=== PATIENT | female | born 1975 | race Two or more races ===

== ENCOUNTER 2016-09-11 17:37 | Emergency (ER) | payer OTHER ==
[2016-09-11 17:58] VITALS: BP 131/91
--- NOTE | 2016-09-11 18:10 | ED ---
Neck Pain - HPI Summary HPI Summary: 41 F presents with neck pain, back pain, and head injury s/p alteration with police. She was in the bathroom huffing a substance when police were called and she allegedly resisted arrest. She states they kicked her in the back of the neck and back and hit her head on the sink. She requested EMS transport. She does not know if there was a LOC or not. She denies any vomiting but admits to nausea. She states the pain in her neck is not midline but is located off to the sides of her neck but radiates down her arms. She admits to tingling down the back of her arm. She admits to right sided sciatic like pain that she has had in the past. She denies any loss of bowel or bladder or any saddle paresthesia. - History of Current Complaint Chief Complaint: EDNeckComplaint Stated Complaint: NECK PAIN Time Seen by Provider: 09/11/16 17:57 Hx Last Menstrual Period: 03/23/13 - states regularly irregular Pain Intensity: 10 - Allergies/Home Medications Allergies/Adverse Reactions: Allergies Allergy/AdvReac Type Severity Reaction Status Date / Time No Known Allergies Allergy Verified 07/15/16 14:00 PMH/Surg Hx/FS Hx/Imm Hx Endocrine/Hematology History: Denies: Hx Diabetes, Hx Thyroid Disease Cardiovascular History: Denies: Hx Congestive Heart Failure, Hx Hypertension, Hx Pacemaker/ICD, Other Cardiovascular Problems/Disorders Respiratory History: Denies: Hx Asthma, Hx Chronic Obstructive Pulmonary Disease (COPD), Other Respiratory Problems/Disorders GI History: Denies: Hx Ulcer Sensory History: Reports: Hx Contacts or Glasses - Glasses Denies: Hx Hearing Aid Opthamlomology History: Reports: Hx Contacts or Glasses - Glasses Neurological History: Reports: Hx Migraine - NOT CURRENTLY, Other Neuro Impairments/Disorders - BIPOLAR,PTSD Psychiatric History: Reports: Hx Anxiety, Hx Depression, Hx Panic Disorder, Hx Post Traumatic Stress Disorder, Hx Inpatient Treatment, Hx Suicide Attempt, Hx of Violent Episodes Against Others, Hx Substance Abuse Denies: Hx Eating Disorder Infectious Disease History: Yes Infectious Disease History: Reports: Hx Hepatitis - Hep C Denies: Hx Clostridium Difficile, Hx Human Immunodeficiency Virus (HIV), Hx of Known/Suspected MRSA, History Other Infectious Disease, Traveled Outside the [place] in Last 30 Days - Family History Known Family History: Positive: Unknown - uncooperative - Social History Alcohol Use: Occasionally Alcohol Amount: rare Substance Use Type: Reports: Other Substance Use Comment - Amount & Last Used: Pt reports only huffing canned air infrequently Smoking Status (MU): Heavy Every Day Tobacco Smoker Type: Cigarettes, Cigars Amount Used/How Often: 1/2 ppd Have You Smoked in the Last Year: Yes Review of Systems Negative: Fever Negative: Chest Pain Negative: Shortness Of Breath Positive: Nausea. Negative: Vomiting Positive: Myalgia - neck and lower back pain Positive: Headache All Other Systems Reviewed And Are Negative: Yes Physical Exam Triage Information Reviewed: Yes Vital Signs On Initial Exam: Initial Vitals Temp Pulse Resp BP Pulse Ox 98.2 F 80 16 131/91 99 09/11/16 17:50 09/11/16 17:50 09/11/16 17:50 09/11/16 17:50 09/11/16 17:50 Vital Signs Reviewed: Yes Appearance: Positive: Well-Appearing Skin: Positive: Warm, Dry, Other - abrasion noted to right eyelid without any suturable area noted Head/Face: Positive: Normal Head/Face Inspection, Other - no step off, raccoon eyes, or de souza sign, contusion noted to right side of forehead Eyes: Positive: Normal, EOMI, NANCY, Conjunctiva Clear ENT: Positive: Normal ENT inspection, Pharynx normal, TMs normal Neck: Positive: Other: - full ROM of neck, no midline tenderness, tender to lateral aspect of neck Respiratory/Lung Sounds: Positive: Clear to Auscultation, Breath Sounds Present Cardiovascular: Positive: Normal, RRR Musculoskeletal: Positive: Other - neg SLR, full ROM of back Neurological: Positive: Sensory/Motor Intact, Alert, Oriented to Person Place, Time, CN Intact II-III, Reflexes Intact - biceps, patella - Ran Coma Scale Coma Scale Total: 15 Diagnostics - Vital Signs Vital Signs Temp Pulse Resp BP Pulse Ox 09/11/16 17:50 98.2 F 80 16 131/91 99 - Laboratory Lab Statement: Any lab studies that have been ordered have been reviewed, and results considered in the medical decision making process. Neck Course/Dx - Course Course Of Treatment: 41 F presents with neck, back, and head pain s/p altercation with police today. on exam normal neuro exam, contusion noted of right forehead and abrasion noted of right eye that is not suturable and is nothing to glue, full ROM of neck, good strength of upper and lower extremities , offered CT and imaging of back and neck and patient refused all imaging states would like to go home and take care of kids, warned of warning signs to return for such as worsening headache and vomiting and patient says will return if develops these, advised to follow up with primary and use tyenlol for pain, patient understands and agrees with plan - Diagnoses Differential Dx/HQI/PQRI: Positive: Cervical Fracture, Sprain, Strain, Trauma Provider Diagnoses: Neck pain, Head injury, Back pain Discharge - Discharge Plan Condition: Stable Disposition: HOME Patient Education Materials: Head Injury (ED), Neck Pain (ED) Referrals: Sarah Foy MD [Primary Care Provider] - Additional Instructions: Ice/heat area, perform ROM of neck and back Take Tylenol for headache every 6 hours Follow up with primary within 5 days Return to ED if develop vomiting, severe headache, change in behavior, or any new or worsening symptoms
== END 2016-09-11 18:21 | disposition home or self-care (01) ==
LOC: ED 17:37
DX: M54.2 Cervicalgia (principal); M54.9 Dorsalgia, unspecified; S09.90XA Unspecified injury of head, initial encounter; X58.XXXA Exposure to other specified factors, initial encounter; Y93.9 Activity, unspecified; Y92.9 Unspecified place or not applicable; Y99.9 Unspecified external cause status; F17.210 Nicotine dependence, cigarettes, uncomplicated
CPT/HCPCS: 99282

== ENCOUNTER 2016-09-11 23:16 | Inpatient (IN) | payer OTHER ==
[~2016-09-11 23:16] MED LIST: Norepinephrine VIAL* 1 MG/ML 4 ML VIAL ONE
[2016-09-11] MEDS ORDERED: Propofol* 100 ML ONE (23:32)
[2016-09-11 23:46] LABS: Hematocrit 35 % (35-47); Mean Corpuscular HGB Conc 32 g/dl (31-36); Mean Corpuscular Hemoglobin 31 pg (27-31); Mean Corpuscular Volume 98 fL (80-97); Mean Platelet Volume 10 um3 (7.4-10.4); Red Blood Count 3.56 10^6/ul (4.0-5.4); Red Cell Distribution Width 17 % (10.5-15); White Blood Count 10.5 10^3/ul (3.5-10.8)
[2016-09-11 23:48] LABS: Add Diff/Slide Review? Slide Review Added; Comments Flag Yes
[2016-09-11 23:57] LABS: Albumin 3.5 g/dL (3.2-5.2); BUN/Creatinine Ratio 7.7 (8-20); Calcium 8.1 mg/dL (8.6-10.3); EGFR African American 58.3 (>60); EGFR Non-African American 45.4 (>60); Globulin 2.6 g/dL (2-4); Magnesium 2.3 mg/dL (1.9-2.7); Potassium 3.9 mmol/L (3.5-5.0); Total Bilirubin 0.4 mg/dL (0.2-1.0); Total Protein 6.1 g/dL (6.4-8.9)
--- NOTE | 2016-09-12 00:14 | ED ---
Cardiac Resuscitation - HPI Summary HPI Summary: Patient presents for evaluation of cardiac arrest. Patient was huffing keyboard tube cleaner, became intoxicated, and witnessed fall onto the ground. She was breathing spontaneously for nearly 20 minutes and witnessed by boyfriend and two sons. They left for what they believe to be 3 to 5 minutes to eat another slice of pizza and upon returning was no longer breathing. CPR begun immediately by family and EMS called. EMS arrived and found her to be unresponsive, asystole, and bagged by BLS. ALS arrived and intubated, placed IV and gave single dose of epinephrine with ROSC. Glucose was greater than 200. - History of Current Complaint Chief Complaint: EDCardiacArrest Stated Complaint: UNRESPONSIVE Time Seen by Provider: 09/11/16 23:44 Hx Obtained From: Family/Paper Grader, EMS Hx From Patient Unobtainable Due To: Extremis Arrest Witnessed: No Down-time Before Basic Life Support Initiated: Unknown Down-time Before Advanced Life Support Initiated: Unknown Was AED Placed on Patient: Yes AED Placed on Patient By: EMS Did AED Recommend Defibrillation: No Was Defibrillating Shock Administered: No Did Patient Have Return of Spontaneous Circulation (ROSC): Yes - Prehospital Findings Airway: Gag Reflex Absent Breathing: Apnea Circulation/Rhythm: Asystole - Prehospital Intervention Breathing: ETT Cuffed - Additional Pertinent History Primary Care Physician: SHELBIE - Allergies/Home Medications Allergies/Adverse Reactions: Allergies Allergy/AdvReac Type Severity Reaction Status Date / Time No Known Allergies Allergy Verified 07/15/16 14:00 - Past Medical History Past Medical History: Unobtainable Due to Extremis - Family History Family History: Unobtainable Due to Extremis - Social History Social History: Unobtainable Due to Extremis - Review of Systems Review of Systems: Unobtainable Due to Extremis Physical Examination - Physical Examination Completion Of Physical Exam Limited Due To: Altered Mental Status, Extremis Resuscitation: Successful - ED Findings Airway: Gag Reflex Absent Breathing: Apnea, Lungs: Clear, Breath Sounds Equal Circulation/Rhythm: Sinus Disability/Neurological: Unresponsive, Does NOT Respond to Pain, Reflexes Not Intact, Pupils Fixed, Pupils Dilated - ED Intervention Breathing: ETT Cuffed, Intubation: - ED Response Airway: Gag Reflex Present - Glascow Coma Score Eye Openin - None Motor: 1 - None Verbal: 1 - Intubated Coma Scale Total: 3 T Procedures - Central Line Central Line Lumen: triple Central Line Procedure: betadine prep, sterile drapes applied, sterile dressing applied Central Line Position: subclavian (L) Complications: none Central Line Post Position: sutured, good blood return, position confirmed w/ CXR Diagnostics - Laboratory Lab Results: Lab Results 09/11/16 09/11/16 Range/Units 23:30 23:30 WBC 10.5 (3.5-10.8) 10^3/ul RBC 3.56 L (4.0-5.4) 10^6/ul Hgb 11.0 L (12.0-16.0) g/dl Hct 35 (35-47) % MCV 98 H (80-97) fL MCH 31 (27-31) pg MCHC 32 (31-36) g/dl RDW 17 H (10.5-15) % Plt Count 179 (150-450) 10^3/ul MPV 10 (7.4-10.4) um3 Neut % (Auto) 60.0 (38-83) % Lymph % (Auto) 32.0 (25-47) % [place] % (Auto) 5.0 (1-9) % Eos % (Auto) 2.3 (0-6) % Baso % (Auto) 0.7 (0-2) % Absolute Neuts (auto) 6.3 (1.5-7.7) 10^3/ul Absolute Lymphs (auto) 3.4 (1.0-4.8) 10^3/ul Absolute Monos (auto) 0.5 (0-0.8) 10^3/ul Absolute Eos (auto) 0.2 (0-0.6) 10^3/ul Absolute Basos (auto) 0.1 (0-0.2) 10^3/ul Absolute Nucleated RBC 0.01 10^3/ul Nucleated RBC % 0.1 Sodium 135 (133-145) mmol/L Potassium 3.9 (3.5-5.0) mmol/L Chloride 104 (101-111) mmol/L Carbon Dioxide 16 L (22-32) mmol/L Anion Gap 15 H (2-11) mmol/L BUN 10 (6-24) mg/dL Creatinine 1.30 H (0.51-0.95) mg/dL Est GFR ( Amer) 58.3 (>60) Est GFR (Non-Af Amer) 45.4 (>60) BUN/Creatinine Ratio 7.7 L (8-20) Glucose 299 H (70-100) mg/dL Calcium 8.1 L (8.6-10.3) mg/dL Magnesium 2.3 (1.9-2.7) mg/dL Total Bilirubin 0.40 (0.2-1.0) mg/dL AST 230 H (13-39) U/L ALT 276 H (7-52) U/L Alkaline Phosphatase 89 (34-104) U/L Troponin I Pending Total Protein 6.1 L (6.4-8.9) g/dL Albumin 3.5 (3.2-5.2) g/dL Globulin 2.6 (2-4) g/dL Albumin/Globulin Ratio 1.3 (1-3) Result Diagrams: 09/11/16 23:30 09/11/16 23:30 Lab Statement: Any lab studies that have been ordered have been reviewed, and results considered in the medical decision making process. - EKG No standard instances Cardiac Rate: Tachycardia EKG Rhythm: Sinus Tachycardia ST Segment: Normal Ectopy: None Cardiac Resus. Course/Dx - Cardiac Resuscitation Differential Dx/HPI/PQRI: Acute Myocardial Infarct, Asystole, Cardiac Rhythm Disturbance, Drug Overdose, Respiratory Failure - Diagnoses Provider Diagnoses: Cardiac arrest, Hypoxic brain damage, Acute renal failure - Provider Notifications Instructed by Provider To: Admit As Inpatient - Critical Care Time Critical Care Time: 30-74 min Discharge - Discharge Plan Condition: Critical Disposition: ADMITTED TO [facility]
[2016-09-12 00:23] LABS: Troponin I 0.01 ng/mL (<0.04)
[2016-09-12] MEDS ORDERED: fentaNYL* 50 MCG/ML 2 ML VIAL (100 MCG VIAL) IV SLOW PU ONE (00:23)
[2016-09-12 00:36] LABS: Benzodiazepine Urine Screen None Detected (None Detect)
[2016-09-12 00:41] LABS: PCO2 Arterial 29 mmHg (35-45)
--- NOTE | 2016-09-12 01:23 | HP ---
H&P (Free Text) History and Physical: PCP: Kevin Foy MD Date/Time of Evaluation: 09/12/2016 0150 CC: [id number] cardiac arrest HPI: Mrs Spear is a 41YO female HX psychiatric disorders who [place] [facility] [place] after claiming a neck injury sustained while being arrested for huffing an unknown substance in a [employer] bathroom. She was evaluated and released. She then went home where her boyfriend and 2 sons age 20 and 22 were. 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 Her boyfriend reports she was breathing and so he went into the next room for no longer than 5minutes. When he returned, she was not breathing and so he called 911 and started bystander CPR. EMS arrived, intubated, and transported. Work up reveals a CT brain WO with full effacement of the cerebrum with associated uncal herniation. PMedHx psychiatric disorders Allergies No Known Allergies Allergy (Verified 07/15/16 14:00) Ambulatory Orders Medications found on patient bedside include mirtazapine, prazosin, nebumetone, & trazodone. Dosages aren't available & full reconciliation will need to be done in the AM via Rx. PSurgHx unobtainable SocHx: polysubstance abuse; lives with a boyfriend; full code status; otherwise unobtainable FamHx: unobtainable ROS: as above, otherwise reviewed and all were negative Constitutional: NAD, normally developed, well-nourished white female vitals: Vital Signs Temp 35.2 C 09/12/16 01:49 Pulse 100 09/12/16 01:49 Resp 15 09/12/16 01:49 BP 178/107 09/12/16 01:49 Pulse Ox 100 09/12/16 01:49 HEENM: atraumatic; sclera/conjunctiva: non-icteric/clear; pupils ~1cm & fixed; blephara: normal; fundi: positive B papilledema; auricles: normal; hearing: unable to assess; oropharynx: intubated, mucosa moist Neck: soft tissue: no nuchal rigidity; thyroid: normal Pulmonary: clear to auscultation bilaterally, good aeration, no accessory muscle use CV: RR/RR, normal S1S2, no carotid bruit, no jugular venous distention, 2+ B DP/ PT, no edema Abdominal: soft, non-distended, non-tender, no rebound/guarding/rigidity, normoactive bowel sounds, no hepatosplenomegaly or masses, no costovertebral angle tenderness Musculoskeletal: general: grossly intact; gait: currently non-ambulatory Integumental: normal appearance and texture Neurological cranial nerves : absent occulocephalic reflex II: visual melissa unassessable III/IV/: symmetric light reflex, pupils ~1cm & fixed V: absent corneal reflex VII: intact facial symmetry VIII: hearing unassessable IX/X: palatal motion, gag reflex, & dysarthria unable to be assessed XII: voice articulation unable to be assessed motor no posturing or withdrawal to noxious stimuli coordination unassessable sensory unassessable Psychiatric orientation: GCS 3 affect: somnolent mood: acquiescent eye contact: absent content: absent responses: absent insight: absent Testing: Lab Results 09/11/16 09/11/16 09/11/16 Range/Units 23:30 23:30 23:30 WBC 10.5 (3.5-10.8) 10^3/ul RBC 3.56 L (4.0-5.4) 10^6/ul Hgb 11.0 L (12.0-16.0) g/dl Hct 35 (35-47) % MCV 98 H (80-97) fL MCH 31 (27-31) pg MCHC 32 (31-36) g/dl RDW 17 H (10.5-15) % Plt Count 179 (150-450) 10^3/ul MPV 10 (7.4-10.4) um3 Neut % (Auto) 60.0 (38-83) % Lymph % (Auto) 32.0 (25-47) % [place] % (Auto) 5.0 (1-9) % Eos % (Auto) 2.3 (0-6) % Baso % (Auto) 0.7 (0-2) % Absolute Neuts (auto) 6.3 (1.5-7.7) 10^3/ul Absolute Lymphs (auto) 3.4 (1.0-4.8) 10^3/ul Absolute Monos (auto) 0.5 (0-0.8) 10^3/ul Absolute Eos (auto) 0.2 (0-0.6) 10^3/ul Absolute Basos (auto) 0.1 (0-0.2) 10^3/ul Absolute Nucleated RBC 0.01 10^3/ul Nucleated RBC % 0.1 INR (Anticoag Therapy) 1.01 (0.89-1.11) APTT 30.5 (26.0-36.3) seconds Patient Temperature ABG pH (7.35-7.45) ABG pCO2 (35-45) mmHg ABG pO2 (80-100) mmHg ABG HCO3 (19-31) mmol/L ABG O2 Saturation (95-98) % ABG Base Excess (-2.0-2.0) Respiration Rate O2 Delivery Device Ventilator Type Vent Mode FiO2 Inspiratory Time PEEP Pressure Support Pressure Control EPAP IPAP BiPAP Sodium 135 (133-145) mmol/L Potassium 3.9 (3.5-5.0) mmol/L Chloride 104 (101-111) mmol/L Carbon Dioxide 16 L (22-32) mmol/L Anion Gap 15 H (2-11) mmol/L BUN 10 (6-24) mg/dL Creatinine 1.30 H (0.51-0.95) mg/dL Est GFR ( Amer) 58.3 (>60) Est GFR (Non-Af Amer) 45.4 (>60) BUN/Creatinine Ratio 7.7 L (8-20) Glucose 299 H (70-100) mg/dL Lactic Acid (0.5-2.0) mmol/L Calcium 8.1 L (8.6-10.3) mg/dL Magnesium 2.3 (1.9-2.7) mg/dL Total Bilirubin 0.40 (0.2-1.0) mg/dL AST 230 H (13-39) U/L ALT 276 H (7-52) U/L Alkaline Phosphatase 89 (34-104) U/L Troponin I 0.01 (<0.04) ng/mL Total Protein 6.1 L (6.4-8.9) g/dL Albumin 3.5 (3.2-5.2) g/dL Globulin 2.6 (2-4) g/dL Albumin/Globulin Ratio 1.3 (1-3) Urine Opiates Screen (None Detect) Ur Barbiturates Screen (None Detect) Ur Phencyclidine Scrn (None Detect) Ur Amphetamines Screen (None Detect) U Benzodiazepines Scrn (None Detect) Urine Cocaine Screen (None Detect) U Cannabinoids Screen (None Detect) 09/11/16 09/11/16 09/12/16 Range/Units 23:30 23:50 01:35 WBC (3.5-10.8) 10^3/ul RBC (4.0-5.4) 10^6/ul Hgb (12.0-16.0) g/dl Hct (35-47) % MCV (80-97) fL MCH (27-31) pg MCHC (31-36) g/dl RDW (10.5-15) % Plt Count (150-450) 10^3/ul MPV (7.4-10.4) um3 Neut % (Auto) (38-83) % Lymph % (Auto) (25-47) % [place] % (Auto) (1-9) % Eos % (Auto) (0-6) % Baso % (Auto) (0-2) % Absolute Neuts (auto) (1.5-7.7) 10^3/ul Absolute Lymphs (auto) (1.0-4.8) 10^3/ul Absolute Monos (auto) (0-0.8) 10^3/ul Absolute Eos (auto) (0-0.6) 10^3/ul Absolute Basos (auto) (0-0.2) 10^3/ul Absolute Nucleated RBC 10^3/ul Nucleated RBC % INR (Anticoag Therapy) (0.89-1.11) APTT (26.0-36.3) seconds Patient Temperature Not Reportable ABG pH 7.31 L (7.35-7.45) ABG pCO2 29 L (35-45) mmHg ABG pO2 502 H (80-100) mmHg ABG HCO3 17.0 L (19-31) mmol/L ABG O2 Saturation 100.0 H (95-98) % ABG Base Excess -10.2 L (-2.0-2.0) Respiration Rate 14 O2 Delivery Device Mechanical ventilator Ventilator Type Not Reportable Vent Mode Pcv FiO2 100 Inspiratory Time Not Reportable PEEP 5 Pressure Support Not Reportable Pressure Control Not Reportable EPAP Not Reportable IPAP Not Reportable BiPAP Not Reportable Sodium (133-145) mmol/L Potassium (3.5-5.0) mmol/L Chloride (101-111) mmol/L Carbon Dioxide (22-32) mmol/L Anion Gap (2-11) mmol/L BUN (6-24) mg/dL Creatinine (0.51-0.95) mg/dL Est GFR ( Amer) (>60) Est GFR (Non-Af Amer) (>60) BUN/Creatinine Ratio (8-20) Glucose (70-100) mg/dL Lactic Acid 9.2 H* (0.5-2.0) mmol/L Calcium (8.6-10.3) mg/dL Magnesium (1.9-2.7) mg/dL Total Bilirubin (0.2-1.0) mg/dL AST (13-39) U/L ALT (7-52) U/L Alkaline Phosphatase (34-104) U/L Troponin I (<0.04) ng/mL Total Protein (6.4-8.9) g/dL Albumin (3.2-5.2) g/dL Globulin (2-4) g/dL Albumin/Globulin Ratio (1-3) Urine Opiates Screen None detected (None Detect) Ur Barbiturates Screen None detected (None Detect) Ur Phencyclidine Scrn None detected (None Detect) Ur Amphetamines Screen None detected (None Detect) U Benzodiazepines Scrn None detected (None Detect) Urine Cocaine Screen Presumptive positive H (None Detect) U Cannabinoids Screen Presumptive positive H (None Detect) ECG, personally reviewed: NSR rate 74, no ischemia, Q-waves in II/III/AVF, QTc 539 CXR, personally reviewed: RLL infiltrate CT brain WO, personally reviewed: read as: Abnormal decreased differentiation of the escudero and white matter throughout the brain is most likely consistent with diffuse global anoxic brain injury with global brain infarct with abnormal brain swelling and edema with diffuse effacement of the sulci, ventricles, & cisterns with mild bilateral early uncal downward herniation. Impression: 41F unfortunately sustaining a severe anoxic brain injury w/ B uncal herniation likely 2nd to cardiac arrhythmia induced by drug use DIAGNOSIS & PLAN Primary severe anoxic brain injury w/ B uncal herniation : mechanical intubation : maintain euthermic at <= 36 celcius : 3% saline to prevent hypoNatremia and mitigate further cerebral edema : family advised survival is doubtful, intact survival is not expected : schwarz to gravity to monitor urine output in critically ill patient : OG tube : PRN IV lorazepam for seizures : monitor for onset of diabetes insipidus : propofol GTT : supportive care Secondary psychiatric issues : review medications once reconciled Admission Rational: inpatient for critically ill intubated patient DVTp: SCDs & heparin GTT Code Status: full HCP: children
[2016-09-12 01:35] LABS: FIO2 100; Resp Rate 14
[2016-09-12] MEDS ORDERED: Ondansetron INJ* 2 MG/ML VIAL IV PRN (01:36)
[2016-09-12] MEDS ORDERED: LORazepam INJ* 2 MG/ML 1 ML VIAL IV PRN (01:36)
[2016-09-12] MEDS ORDERED: Albuterol 2.5 MG/3 ML NEB.SOL* (0.083%) INH PRN (01:36)
[2016-09-12] MEDS ORDERED: Sodium Chloride 3% HYPERTONIC* 500 ML IVPB ONE ×2 (01:47→12:37)
[2016-09-12] MEDS ORDERED: fentaNYL* 50 MCG/ML 2 ML VIAL (100 MCG VIAL) ONE (01:53)
[2016-09-12] MEDS: fentaNYL* 50 MCG/ML 2 ML VIAL (100 MCG VIAL) IV SLOW PU PRN ×2 (01:55→02:35)
[2016-09-12] MEDS ORDERED: Norepinephrine 16MCG/ML IVPRE* 4,000 MCG/250 ML BAG IV SCH (02:00)
[2016-09-12] MEDS ORDERED: Propofol* 100 ML IV SCH ×2 (02:00)
[2016-09-12] MEDS ORDERED: Piperac/Tazob 3.375 gm in NS* 3.375 GM/100 ML BAG IVPB ONE (03:00)
[2016-09-12] MEDS: Pantoprazole IV* 40 MG IV SCH ×2 (03:30→08:04)
[2016-09-12] MEDS: Acetaminophen SUPP* 650 MG SUPP PR SCH ×4 (03:30→22:29)
[2016-09-12 06:00] LABS: Hematocrit 45 % (35-47); Hemoglobin 14.4 g/dl (12.0-16.0); Mean Corpuscular HGB Conc 32 g/dl (31-36); Mean Corpuscular Hemoglobin 31 pg (27-31); Mean Corpuscular Volume 95 fL (80-97); Mean Platelet Volume 10 um3 (7.4-10.4); Red Cell Distribution Width 16 % (10.5-15); White Blood Count 21.3 10^3/ul (3.5-10.8)
[2016-09-12 06:02] LABS: Comments Flag Yes
[2016-09-12 06:03] LABS: Add Diff/Slide Review? Slide Review Added
[2016-09-12 06:11] LABS: Albumin 3.7 g/dL (3.2-5.2); BUN/Creatinine Ratio 11.3 (8-20); Calcium 7.5 mg/dL (8.6-10.3); EGFR African American 38.6 (>60); Globulin 2.9 g/dL (2-4); Potassium 3.4 mmol/L (3.5-5.0); Total Bilirubin 0.5 mg/dL (0.2-1.0); Total Protein 6.6 g/dL (6.4-8.9)
[2016-09-12] MEDS: Insulin LISPRO* 1 UNITS UNIT SUBCUT SCH ×5 (06:12→23:07)
[2016-09-12 06:19] LABS: Immature Granulocytes 20 % (0-9); Neutrophil % 67 % (38-83); Reactive Lymph % 1 % (0-6); Toxic Granulation 1+
[2016-09-12 06:46] LABS: FIO2 40; Resp Rate 14
[2016-09-12 06:51] LABS: PCO2 Arterial 31 mmHg (35-45)
--- NOTE | 2016-09-12 06:55 | PN ---
Progress Note - Progress Note Note: After arriving to ICU, Mrs Spear had a bloody bowel movement, likely 2nd ischemic bowel from her cardiac arrest. Additionally, repeat lab values this AM show worsening renal and hepatic function as well as a troponin of 3.0.
[2016-09-12] MEDS: Chlorhexidine MOUTHWASH 0.12%* 15 ML UDC TOPICAL SCH ×5 (06:57→22:29)
[2016-09-12] MEDS ORDERED: Amiodarone 150 MG IVPREMIX* 150 MG/100 ML BAG IV ONE (07:08)
[2016-09-12] MEDS ORDERED: Amiodarone 360 MG IVPREMIX* 360 MG/200 ML BAG IV ONE (07:30)
[2016-09-12] MEDS: Piperac/Tazob 3.375 gm in NS* 3.375 GM/100 ML BAG IVPB SCH ×2 (07:58→15:55)
[2016-09-12] MEDS ORDERED: Sodium Bicarbonate 8.4% IV* 150 MEQ in D5W 1000 ML BAG* 1,000 ML IVPB SCH (08:00)
[2016-09-12] MEDS: KCL 20 MEQ/100 ML IVPREMIX* 20 MEQ/100 ML BAG IV SCH ×3 (08:03→12:56)
--- NOTE | 2016-09-12 08:13 | PN ---
Hospitalist Progress Note HOSPITALIST ADDENDUM Case reviewed with Dr. Esteban. Called by RN (Carol) about episodes of Vtach seen on Telemetry, but VS stable. Also called by RT (Dex) as patient's ABG shows metabolic acidosis. Tele strips reviewed show bursts of wide complex tachycardia suggestive of Vtach. AB./174/99, showing metabolic acidosis likely secondary to NUVIA and lactic acidosis. Selected Entries 09/12/16 09/12/16 07:30 07:33 Temperature 97.2 F Heart Rate 90 Respiratory 26 Rate Blood Pressure 117/85 (mmHg) O2 Sat by Pulse 100 Oximetry Respiratory End 15 -Tidal CO2 Gen: young lady lying in bed, tachypneic, breathing over the vent. CVS: normal S1 and S2, RRR. Chest: BS+ bilaterally with no added sounds. Neuro: unresponsive, pupils dilated and non-reactive to light. A/P: - Tachypnea secondary to metabolic acidosis, trying to compensate with respiratory alkalosis, but failing. - Will replete potassium, check magnesium, start Amiodarone and Bicarb drips. - Overall prognosis is very poor.
[2016-09-12 08:37] LABS: Magnesium 1.8 mg/dL (1.9-2.7)
--- NOTE | 2016-09-12 08:55 | RAD ---
INDICATION: Unresponsiveness COMPARISON: Most recent previous chest x-ray is dated June 12, 2013 TECHNIQUE: Single AP portable view of the chest was obtained. FINDINGS: Image quality is compromised due to the relative inferiority of a portable chest x-ray. There has been interval placement of an endotracheal tube with the tip approximately 4 cm above the magda. An AED pad is overlying the midline mediastinum. The heart and mediastinum exhibit normal size and contour. The lungs appear hyperaerated in the AP view. The lungs are otherwise grossly clear. There is no evidence of a large pleural effusion. Visualized bones are normal for the patient's age. IMPRESSION: 1. Appropriately positioned endotracheal tube. 2. No radiographic evidence for acute cardiopulmonary abnormality on this portable chest x-ray.
--- NOTE | 2016-09-12 09:01 | RAD ---
INDICATION: Unresponsiveness COMPARISON: Most recent CT of the brain August 18, 2016 TECHNIQUE: Contiguous axial sections of the brain were obtained from the skull base to the vertex without contrast. FINDINGS: There is widespread loss of the differentiation of the white and escudero matter diffusely. There is diffuse sulcal effacement. There has been interval decrease in the relative size, symmetrically, of the ventricles, sulci and basilar cisterns. Hypoattenuating density immediately posterior to the left occipital lobe is likely streak artifact. No definite extra-axial hemorrhage is identified. No significant focal osseous abnormality is present. The mastoid air cells are well-aerated. There is mild bilateral mucosal thickening of the ethmoid air cells and a small fluid level in the left sphenoid sinus. IMPRESSION: CT findings are compatible with diffuse anoxic brain injury and global cerebral edema.
--- NOTE | 2016-09-12 09:31 | RAD ---
INDICATION: Placement of orogastric tube COMPARISON: Most recent previous chest x-ray dated September 11, 2016 TECHNIQUE: Single AP portable view of the chest was obtained. FINDINGS: Image quality is compromised due to the relative inferiority of a portable chest x-ray. The endotracheal tube remains in appropriate position. There is been interval placement of an orogastric tube the tip terminating below the level of diaphragm overlying the gastric fundus. The lungs appear hyperaerated. The right greater than left diaphragm are obscured which could indicate the presence of pleural effusions. IMPRESSION: 1. Interval placement of a properly positioned orogastric tube. 2. Possible development of right greater than left pleural effusions.
[2016-09-12] MEDS ORDERED: Norepinephrine 16MCG/ML IVPRE* 4,000 MCG/250 ML BAG IV ONE (09:54)
[2016-09-12] MEDS ORDERED: Insulin GLARGINE(*) 1 UNITS UNIT SUBCUT ONE (12:30)
--- NOTE | 2016-09-12 12:48 | PN ---
Progress Note - Progress Note Note: CRITICAL CARE MEDICINE Date: 09/12/16 Time: 1130 SUBJECTIVE: Patient seen and examined. PHYSICAL EXAM: Vital Signs: Reviewed. T ~36C; HR 70-80s. MAP >70. 40% Neurologic: overbreathing vent; agonal and dysyn. dysconj pupils. about 3mm nonreactive. neg corneals, gag, cough. no ocr. no response to painful stimuli. HEENT: Sclera anicteric. Trachea midline. Cardiovascular: S1 S2 Respiratory: coarse rales bl; adjusted to high level PCV to avoid air hunger and then aprv. Abdomen: Soft, no bs. Extremities: cyanotic at fingers and toes. Access: Left subclavian cvc LABS: Reviewed. IMAGING: Reviewed. MEDICATIONS: Reviewed. ASSESSMENT: 41 F OHCA post toxic inhalation and global anoxia Anoxic brain injury OHCA and cardiogenic shock on admission - stabilized. NSTEMI Sec to demand ischemia Acute hypoxic resp failure Aspiration pneumonitis Acute ischemic gastritis Ischemic hepatitis Lactic acidosis Acute renal failure, with component of ATN Hyponatremia on admission Tox + cocaine and cannabis PLAN: Neurologic: severe injury and at risk to deteriorate to brain . On 3% saline continue currently to avoid hyponatremia but not bolusing up to high Na. Goal high nml 145. Only triggering resp at present and prognosis grim as likely to lose this ability as well. Maintain euthermia <36C. Recieved short course of propofol but off now. Cardiovascular: Malperfused still. Low dose levophed and maintain MAP >75. Keep fluids for now although intravascular equilibrating. WCT earlier abated by amio. Can hold off on amio now and correct acid and see how she maintains. Would commit to amio if arrythmias resume. Respiratory: lung injury. Adjusted to aprv. again, overbreathing, but unable to allieviate all her work but on other modalities at too much risk for further lung injury/ards. protection as able but not wanting to sedate. Gastrointestinal: ogt. ppi. wouldn't curtis, just correct hypoxia and acid. Renal/Metabolic: acute insult likely to worsen. keep perfusion. ivf. bicarb gtt today. f/u Infectious Disease: placed on zosyn. may be at risk to invasion post aspiration and will keep for now given severity. Hematology: hemoconcentrated on last lab. start hsq and follow. Endocrine: reactive hyperglycemia. Low dose lantus and ssi; no seeing benefit in drip and certainly need to avoid hypo Musculoskeletal: bedrest; skin protection. Psych/Social: No family available yet but updated extensively last pm by hospitalists. Grave prognosis. Alert FLDRS. Supportive and preventative care as ordered. SUP: ppi VTE prophylaxis: heparin Logan catheter given critical illness. Disposition: ICU Code Status: Full Critical Care Time: 65min FGildardo Carvajal DO
[2016-09-12] MEDS ORDERED: Amiodarone 360 MG IVPREMIX* 360 MG/200 ML BAG IV SCH (13:30)
[2016-09-12] MEDS: Sodium Bicarbonate 8.4% IV* 150 MEQ in D5W 1000 ML BAG* 1,000 ML IVPB SCH ×3 (14:35→23:11)
[2016-09-12] MEDS: Heparin VIAL(*) 5000 UNITS/ML VIAL (FIVE THOUSAND) SUBCUT SCH ×2 (14:42→22:29)
--- NOTE | 2016-09-12 15:28 | PN ---
Progress Note - Progress Note Note: CRITICAL CARE MEDICINE Date: 09/12/16 Time: 1500 boyfriend and son updated at bedside. We discussed dx, px, support and time. They expressed some understanding. CCM time 10min India Carvajal, DO
[2016-09-12] MEDS: NS 0.9% 1000 ML* 1,000 ML IV SCH (20:28)
[2016-09-12] MEDS ORDERED: Insulin GLARGINE(*) 1 UNITS UNIT SUBCUT SCH (21:00)
[2016-09-13] MEDS: Piperac/Tazob 3.375 gm in NS* 3.375 GM/100 ML BAG IVPB SCH ×3 (00:34→17:48)
[2016-09-13] MEDS: Chlorhexidine MOUTHWASH 0.12%* 15 ML UDC TOPICAL SCH ×6 (02:27→21:54)
[2016-09-13] MEDS: Insulin LISPRO* 1 UNITS UNIT SUBCUT SCH ×6 (02:27→21:55)
[2016-09-13] MEDS: Norepinephrine 16MCG/ML IVPRE* 4,000 MCG/250 ML BAG IV SCH (05:05)
[2016-09-13] MEDS: Acetaminophen SUPP* 650 MG SUPP PR SCH ×4 (05:05→22:59)
[2016-09-13] MEDS: Sodium Bicarbonate 8.4% IV* 150 MEQ in D5W 1000 ML BAG* 1,000 ML IVPB SCH ×2 (05:06→08:18)
[2016-09-13] MEDS ORDERED: Heparin VIAL(*) 5000 UNITS/ML VIAL (FIVE THOUSAND) SUBCUT SCH (06:00)
[2016-09-13] MEDS: Heparin VIAL(*) 5000 UNITS/ML VIAL (FIVE THOUSAND) SUBCUT SCH ×3 (06:28→21:54)
[2016-09-13] MEDS: NS 0.9% 1000 ML* 1,000 ML IV SCH (06:46)
[2016-09-13 06:49] LABS: Hematocrit 38 % (35-47); Hemoglobin 12.3 g/dl (12.0-16.0); Mean Corpuscular HGB Conc 33 g/dl (31-36); Mean Corpuscular Hemoglobin 31 pg (27-31); Mean Corpuscular Volume 95 fL (80-97); Mean Platelet Volume 10 um3 (7.4-10.4); Red Blood Count 3.99 10^6/ul (4.0-5.4); Red Cell Distribution Width 16 % (10.5-15); White Blood Count 31.5 10^3/ul (3.5-10.8)
[2016-09-13 06:54] LABS: Add Diff/Slide Review? Slide Review Added; Comments Flag Yes
[2016-09-13 07:04] LABS: Albumin 2.8 g/dL (3.2-5.2); BUN/Creatinine Ratio 14.2 (8-20); EGFR African American 26.2 (>60); EGFR Non-African American 20.4 (>60); Globulin 2.6 g/dL (2-4); Magnesium 1.6 mg/dL (1.9-2.7); Phosphorus 4.8 mg/dL (2.5-5.0); Total Bilirubin 0.4 mg/dL (0.2-1.0); Total Protein 5.4 g/dL (6.4-8.9)
[2016-09-13 07:47] LABS: Calcium 5.8 mg/dL (8.6-10.3); Direct Bilirubin 0.1 mg/dL (0.03-0.18); Indirect Bilirubin 0.3 mg/dL (0.3-1.0); Potassium 4.6 mmol/L (3.5-5.0)
[2016-09-13 08:36] LABS: Immature Granulocytes 9 % (0-9); Neutrophil % 79 % (38-83)
[2016-09-13 08:37] LABS: RBC Morphology Normal (Normal)
[2016-09-13] MEDS: Pantoprazole IV* 40 MG IV SCH (08:47)
--- NOTE | 2016-09-13 11:39 | PN ---
Progress Note - Progress Note Note: CRITICAL CARE MEDICINE Date: 09/13/16 Time: 1035 SUBJECTIVE: Patient seen and examined. PHYSICAL EXAM: Vital Signs: Reviewed. T ~36C; HR 70-80s. MAP >70. 40% Neurologic: overbreathing vent still with agonal, asyn breaths although they are better. pupils more conjugate but fixed. nonreactive. no gag, cough, corneals. no movement to stimuli. HEENT: Sclera anicteric. Trachea midline. Cardiovascular: S1 S2 Respiratory: coarse rales bl; adjusted to high Phigh this am as volumes are low. Abdomen: Soft, no bs. Extremities: cyanotic at fingers and toes better. Access: Left subclavian cvc LABS: Reviewed. IMAGING: Reviewed. MEDICATIONS: Reviewed. ASSESSMENT: 41 F [facility]CA post toxic inhalation and global anoxia Anoxic brain injury Post cardiac arrest coma syndrome OHCA and cardiogenic shock on admission - stabilized. NSTEMI Sec to demand ischemia Acute hypoxic resp failure Aspiration pneumonitis Acute ischemic gastritis Ischemic hepatitis Lactic acidosis Acute renal failure, with component of ATN Hyponatremia on admission Tox + cocaine and cannabis PLAN: Neurologic: Remains with triggered breaths, but agonal. She is maintaining these currently. f/u clinically as remains at risk for deterioration to brain . Na fine. TTM euthermia. Consider MRI in another day if not in brain and looking for further prognosis; +/- neuro eval if needed. Cardiovascular: Perfusion stabilized. Not needing pressors. still. Lower fluids now. Respiratory: acute lung injury post aspiration. Maintained on aprv. adjusted to higher Phigh this am as volumes are low. May be lack of secretion movement and plugging and need to see if we can improve. If not needs cxr. Gastrointestinal: ppi. start tf today Renal/Metabolic: acute insult post atn. has adequete perfusion and avoid volume overload. off bicarb gtt today. Na up post hypertonic. No DI evident. f/u Infectious Disease: continued on zosyn for now. wbc up post ischemic marrow shock now in evolution and maturation. Hematology: more equilibrated. hsq. Endocrine: reactive hyperglycemia; better. Low dose lantus and ssi still. Musculoskeletal: bedrest given neuro status; skin protection. Psych/Social: BF and son updated yesterday and will look to update again today. Supportive and preventative care as ordered. SUP: ppi VTE prophylaxis: heparin Logan catheter given critical illness and avoid retention. Disposition: ICU Code Status: Full Critical Care Time: 40min India Carvajal DO
[2016-09-13] MEDS ORDERED: Insulin GLARGINE(*) 1 UNITS UNIT SUBCUT ONE (13:53)
[2016-09-14] MEDS: Piperac/Tazob 3.375 gm in NS* 3.375 GM/100 ML BAG IVPB SCH ×2 (00:15→09:46)
[2016-09-14] MEDS: Norepinephrine 16MCG/ML IVPRE* 4,000 MCG/250 ML BAG IV SCH ×2 (01:28→17:00)
[2016-09-14] MEDS: Chlorhexidine MOUTHWASH 0.12%* 15 ML UDC TOPICAL SCH ×6 (02:22→22:15)
[2016-09-14] MEDS: Insulin LISPRO* 1 UNITS UNIT SUBCUT SCH ×5 (02:22→18:33)
[2016-09-14] MEDS: Acetaminophen SUPP* 650 MG SUPP PR SCH ×2 (05:10→13:44)
[2016-09-14 05:36] LABS: Hematocrit 36 % (35-47); Hemoglobin 11.5 g/dl (12.0-16.0); Mean Corpuscular HGB Conc 32 g/dl (31-36); Mean Corpuscular Hemoglobin 30 pg (27-31); Mean Corpuscular Volume 94 fL (80-97); Mean Platelet Volume 10 um3 (7.4-10.4); Red Blood Count 3.79 10^6/ul (4.0-5.4); Red Cell Distribution Width 17 % (10.5-15); White Blood Count 25.1 10^3/ul (3.5-10.8)
[2016-09-14 05:37] LABS: Venous Bicarbonate HCO3 28.4 mmol/L (24-28)
[2016-09-14 05:40] LABS: Add Diff/Slide Review? Slide Review Added; Comments Flag Yes
[2016-09-14 05:50] LABS: BUN/Creatinine Ratio 16.2 (8-20); EGFR African American 18.1 (>60); Magnesium 2.1 mg/dL (1.9-2.7); Phosphorus 6.5 mg/dL (2.5-5.0); Potassium 4.2 mmol/L (3.5-5.0)
[2016-09-14 05:51] LABS: Calcium 6.1 mg/dL (8.6-10.3)
[2016-09-14] MEDS: Heparin VIAL(*) 5000 UNITS/ML VIAL (FIVE THOUSAND) SUBCUT SCH ×3 (05:54→22:15)
[2016-09-14] MEDS: Pantoprazole IV* 40 MG IV SCH (09:46)
[2016-09-14] MEDS: NS 0.9% 1000 ML* 1,000 ML IV SCH ×2 (13:53→23:42)
--- NOTE | 2016-09-14 16:32 | PN ---
Critical Care Services: Remains comatose (day 3 post-arrest). Pupils also dilated and unresponsive Vital Signs: Temp Pulse Resp BP SpO2 FiO2 99.8 F 79 16 100/64 100 30 Physical Exam: Gen:As mentioned HEENT: No facial asymmetry Lungs:clear Extremities:No cyanosis or edema. Neuro: Has spontaneous breathing efforts. No pupillary light reflexes or corneal reflexes Fluid Balance (Past 24 Hours): 09/14/16 06:59 Intake Total 2466 Output Total 605 Balance +1861 Weight 134 lb Intake: IV Fluids 445 3% NS NS (0.9%) 445 abx IVPB 105 NS (0.9%) abx 105 Medicated IV 999.8 CC - Propofol/Diprivan KCL amiodarone levophed 260.8 sodium bicarb 739 Tube Feeding 817 Tube Feeding Flush Amount 100 Output: NG Tube Drainage Amount Logan 605 Other: Date of Last Bowel Movement # Bowel Movements Estimated Stool Amount Labs: 09/14/16 09/14/16 09/14/16 01:50 05:25 05:25 VBG pH 7.28 L VBG pCO2 72 H VBG pO2 43 VBG HCO3 28.4 H VBG O2 Saturation 78.1 VBG Base Excess 5.1 H Sodium 153 Potassium 4.2 Chloride 114 H Carbon Dioxide 31 Anion Gap 8 BUN 58 Creatinine 3.59 Glucose 143 H POC Glucose (mg/dL) 130 H Osmolality Calcium 6.1 L* Ionized Calcium 3.23 L Phosphorus 6.5 H Magnesium 2.1 09/14/16 05:25 WBC 25.1 H RBC 3.79 L Hgb 11.5 L Hct 36 Plt Count 168 Studies: None today Nutrition: Tube feedings Impression: 1. Anoxic encephalopathy with continuing coma - absence of corneals and pupillary light reflexes carrries a poor prognosis for recovery. Plan: 1. EEG tomorrow to r/o nonconvulsive status. I have spoken with patients family (brother and two sons) about the poor prognosis in this case. For now, they want to continus with the current level of care. Critical Care Time: 40 minutes
[2016-09-14] MEDS ORDERED: Piperac/Tazob 3.375 gm in NS* 3.375 GM/100 ML BAG IVPB SCH (20:00)
[2016-09-15] MEDS: Norepinephrine 16MCG/ML IVPRE* 4,000 MCG/250 ML BAG IV SCH ×3 (00:17→14:11)
[2016-09-15] MEDS: Chlorhexidine MOUTHWASH 0.12%* 15 ML UDC TOPICAL SCH ×4 (02:31→14:10)
[2016-09-15 05:19] LABS: Hematocrit 31 % (35-47); Hemoglobin 9.9 g/dl (12.0-16.0); Mean Corpuscular HGB Conc 33 g/dl (31-36); Mean Corpuscular Hemoglobin 31 pg (27-31); Mean Corpuscular Volume 94 fL (80-97); Mean Platelet Volume 11 um3 (7.4-10.4); Red Blood Count 3.24 10^6/ul (4.0-5.4); Red Cell Distribution Width 16 % (10.5-15); White Blood Count 14.9 10^3/ul (3.5-10.8)
[2016-09-15 05:32] LABS: BUN/Creatinine Ratio 16.4 (8-20); Blood Urea Nitrogen 57 mg/dL (6-24); CO2 Carbon Dioxide 31 mmol/L (22-32); Calcium 6.6 mg/dL (8.6-10.3); Chloride 120 mmol/L (101-111); Creatine Kinase 957 U/L (10-223); EGFR African American 18.7 (>60); EGFR Non-African American 14.6 (>60); Glucose 126 mg/dL (70-100); Potassium 3.4 mmol/L (3.5-5.0)
[2016-09-15 05:35] LABS: Anion Gap 7 mmol/L (2-11); Sodium 158 mmol/L (133-145)
[2016-09-15] MEDS: Heparin VIAL(*) 5000 UNITS/ML VIAL (FIVE THOUSAND) SUBCUT SCH ×2 (05:51→14:10)
[2016-09-15] MEDS ORDERED: ICU Lab Reminder 1 NOTE MISC FOLLOW UP SCH (07:00)
[2016-09-15] MEDS: Pantoprazole IV* 40 MG IV SCH (08:45)
[2016-09-15 09:37] LABS: FIO2 40
[2016-09-15 09:46] LABS: PCO2 Arterial 51 mmHg (35-45)
[2016-09-15 09:55] LABS: FIO2 15
[2016-09-15 10:16] LABS: PCO2 Arterial 97 mmHg (35-45)
[2016-09-15 10:20] LABS: ALT 118 U/L (7-52); AST 63 U/L (13-39); Albumin 2.7 g/dL (3.2-5.2); Alkaline Phosphatase 57 U/L (34-104); Globulin 2.5 g/dL (2-4); Total Protein 5.2 g/dL (6.4-8.9)
--- NOTE | 2016-09-15 11:39 | PN ---
Progress Note - Progress Note Note: BRAIN DETERMINATION Patient with continuing coma and without spontaneous respirations this AM. Brain determination performed - there was no evidence of brainstem activity (no corneal or pupillary light reflexes, no gag or cough reflex, and no oculovestibular response) and apnea test was confirmatory (PaCO2 increased from 48 to 104 mm Hg without spontaneous respiratory efforts). Time of apnea test: 10:45 AM All criteria for brain are satisfied in this case. A confirmatory evaluation will be performed by the neurology service. Following this, the family will be informed. The patient is a registered organ donor, and the organ donation service is on site. Critical care time: 45 minutes
[2016-09-15] MEDS ORDERED: Vasopressin* 100 UNITS in D5W 250 ML BAG* 245 ML IVPB SCH (17:30)
[2016-09-15] MEDS ORDERED: CHLORHEXADINE (PERIDEX) VENT ORAL CARE TOPICAL PRN (17:35)
--- NOTE | 2016-09-15 17:44 | RAD ---
INDICATION: Organ donation COMPARISON: Chest x-ray September 12, 2016 TECHNIQUE: An AP portable view obtained at 1727 hours is submitted. FINDINGS: Bones/Soft Tissues: There are no acute bony findings. There are endotracheal and orogastric tubes in expected positions. There is a left-sided central venous catheter terminating in the superior vena cava. Cardiomediastinal: The cardiomediastinal silhouette is normal. Lungs: There are no infiltrates. There are small granulomas Pleura: There are no pleural effusions. Other: None IMPRESSION: NO ACTIVE DISEASE. LUNGS CLEAR.
[2016-09-15] MEDS ORDERED: Dextrose 50% Syringe 50 ML* 25 GM/50 ML SYRINGE IV PUSH ONE (18:00)
[2016-09-15] MEDS ORDERED: Potassium Chlor TAB* 20 MEQ TAB.ER PO PRN (18:00)
[2016-09-15] MEDS ORDERED: methylPREDNISolone 125 MG* 2 ML VIAL IV ONE (18:00)
[2016-09-15] MEDS ORDERED: INSULIN REGULAR IV PUSH (18:00)
[2016-09-15] MEDS ORDERED: Potassium Phosphate IV* 3 MMOLE/ML 5 ML IVPB IV PRN (18:00)
[2016-09-15] MEDS ORDERED: Magnesium Sulfate IV* 0.5 GM/ML 2 ML VIAL (1 GM) IVPB PRN (18:00)
[2016-09-15] MEDS ORDERED: Sodium Phosphate INJ* 3 MMOLE/ML 5 ML IVPB PRN (18:00)
[2016-09-15] MEDS ORDERED: CALCIUM GLUCONATE IV PRN (18:00)
[2016-09-15] MEDS: Piperac/Tazob 3.375 gm in NS* 3.375 GM/100 ML BAG IVPB SCH (18:07)
[2016-09-15] MEDS ORDERED: Insulin LISPRO* 1 UNITS UNIT SUBCUT ONE (18:12)
[2016-09-15] MEDS: CHLORHEXADINE (PERIDEX) VENT ORAL CARE TOPICAL SCH ×3 (18:14→22:00)
[2016-09-15] MEDS: Levothyroxine INJ* 200 MCG in D5W 500 ML BAG* 500 ML IV SCH ×2 (18:16→21:45)
[2016-09-15] MEDS: Desmopressin Acetate* 4 MCG/ML 1 ML SDV IV SCH (18:18)
[2016-09-15] MEDS: Albuterol 2.5 MG/3 ML NEB.SOL* (0.083%) INH SCH ×2 (19:25→23:30)
[2016-09-15] MEDS ORDERED: INSULIN LISPRO SUBCUT SCH ×2 (20:00→23:45)
[2016-09-15] MEDS: KCL 20 MEQ/100 ML IVPREMIX* 100 ML BAG IV PRN ×2 (20:00→21:32)
[2016-09-15] MEDS: Potassium Chloride LIQUID* 20 MEQ PACKET PO PRN (20:45)
[2016-09-15] MEDS: Miconazole VAG SUPP* 200 MG SUP VAGINAL SCH (21:21)
[2016-09-15] MEDS ORDERED: NS 0.9% 1000 ML* 1,000 ML IV ONE (21:30)
[2016-09-16] MEDS: Potassium Chloride LIQUID* 20 MEQ PACKET PO PRN ×2 (00:11→19:45)
[2016-09-16] MEDS ORDERED: VASOPRESSIN 20 UNITS/ML 1 ML VIAL ONE (00:26)
[2016-09-16] MEDS: INSULIN LISPRO SUBCUT SCH ×12 (00:56→22:09)
[2016-09-16] MEDS ORDERED: NS 0.9% 1000 ML* 2,000 ML IV ONE ×2 (01:45→06:45)
[2016-09-16] MEDS: CHLORHEXADINE (PERIDEX) VENT ORAL CARE TOPICAL SCH ×13 (01:46→22:09)
[2016-09-16] MEDS: Levothyroxine INJ* 200 MCG in D5W 500 ML BAG* 500 ML IV SCH ×5 (02:39→14:22)
[2016-09-16] MEDS ORDERED: Potassium Phosphate IV* 20 MMOLE in NS 0.9% 250 ML* 250 ML IVPB ONE (03:00)
[2016-09-16] MEDS: NS 0.45% KCl 20 Meq 1000 ML* 1,000 ML IV SCH ×2 (03:13→13:18)
[2016-09-16] MEDS: Albuterol 2.5 MG/3 ML NEB.SOL* (0.083%) INH SCH ×6 (03:32→23:47)
[2016-09-16] MEDS: Desmopressin Acetate* 4 MCG/ML 1 ML SDV IV SCH ×2 (06:30→18:39)
[2016-09-16] MEDS: Piperac/Tazob 3.375 gm in NS* 3.375 GM/100 ML BAG IVPB SCH ×2 (06:30→18:10)
[2016-09-16] MEDS ORDERED: CALCIUM GLUCONATE* 1 GM/10 ML VIAL (in Pyxis) IV PRN ×2 (09:12→18:00)
[2016-09-16] MEDS: CALCIUM GLUCONATE* 1 GM/10 ML VIAL (in Pyxis) IV PRN ×3 (09:40→14:27)
[2016-09-16] MEDS: Magnesium Sulfate 1 GM IV* 100 ML BAG IV PRN (11:20)
--- NOTE | 2016-09-16 13:51 | RAD ---
BEDSIDE NONFOCAL CORE BIOPSY OF THE RIGHT LOBE OF THE LIVER PERFORMED WITH PORTABLE ULTRASOUND IN THE ICU. INDICATION: Routine testing prior to organ donor harvesting. COMPARISON: None ANESTHESIA: Lidocaine injected locally. Consent paperwork presented by [facility] provided consent for the nonfocal biopsy. Multiple images of the right lobe of liver were obtained with sonographic imaging. A percutaneous tract was determined leading into the peripheral aspect of the right lobe of the liver. Color flow imaging did not show any pulsating arteries in the intended biopsy tract or within the intended liver parenchyma biopsy site. Prebiopsy ultrasound images were saved. A time out was performed before beginning the procedure. The patient was prepped and draped in the usual sterile fashion. The overlying skin, subcutaneous tissue and liver capsule were anesthetized with 1% lidocaine under sonographic guidance. Percutaneously and under sonographic control a single core biopsy was obtained with a 16. Gauge Bard Monopty device. Imaging was saved. The specimen was grossly visualized and confirmed, placed in formalin and delivered to the pathology laboratory. The post procedure ultrasound demonstrates no evidence of a large hematoma or perinephric fluid. Shortly after completion of the biopsy a repeat biopsy was requested as the specimen was placed in formalin which prevented antigen testing and donor recipient compatibility. A time out was performed before beginning the second core acquisition. The patient was prepped and draped in the usual sterile fashion. Percutaneously and under sonographic control a single core biopsy was obtained with a 16. Gauge Bard Monopty device. Imaging was saved. The specimen was grossly visualized and confirmed, placed in saline soaked Telfa and delivered to the pathology laboratory. The post procedure ultrasound demonstrates no evidence of a large hematoma or perinephric fluid. IMPRESSION: ultrasound-guided nonfocal core biopsy of the right lobe of the liver as described above.
[2016-09-16] MEDS ORDERED: Levothyroxine INJ* 100 MCG in D5W 250 ML BAG* 250 ML IV SCH (17:11)
[2016-09-16] MEDS: Levothyroxine INJ* 100 MCG in D5W 250 ML BAG* 250 ML IV SCH ×2 (18:17→22:09)
[2016-09-16] MEDS: Miconazole VAG SUPP* 200 MG SUP VAGINAL SCH (20:19)
--- NOTE | 2016-09-16 21:20 | DS ---
SUMMARY: DATE OF ADMISSION: 09/12/16 DATE : 09/15/16 HISTORY OF PRESENT ILLNESS: The patient was a 41-year-old female with a history of psychiatric disorder and drug abuse, who was brought to the emergency room on 09/12/16 following an [id number] cardiac arrest that was presumably secondary to inhaling the contents of multiple computer keyboard grave cleaner canisters. The patient was found down in her bathroom by her boyfriend and was brought in. The patient was successfully resuscitated and was admitted to the intensive care unit. Following admission, the patient remained comatose and a CT scan of the head revealed diffuse cerebral edema. On 09/14/16, the patient developed fixed and dilated pupils but continued to have spontaneous breathing efforts. On 09/15/16, the patient lost spontaneous breathing efforts. At that time, a brain determination revealed no evidence of brain stem activity and no spontaneous respirations. An apnea test was confirmatory for brain . A confirmatory evaluation was done by the neurology service and they concurred with the diagnosis of brain . The patient's two sons and brother (healthcare surrogates) were informed of the brain diagnosis. The patient was a registered donor and so steps are being taken to evaluate the patient for organ donation. FINAL DIAGNOSIS: Brain due to anoxic encephalopathy, as a result of a drug overdose with an out of hospital cardiac arrest. [id number]/CPS #: [id number] MTDD
[2016-09-17] MEDS: CHLORHEXADINE (PERIDEX) VENT ORAL CARE TOPICAL SCH ×12 (00:03→21:55)
[2016-09-17] MEDS: INSULIN LISPRO SUBCUT SCH ×12 (00:03→21:55)
[2016-09-17] MEDS: Potassium Chloride LIQUID* 20 MEQ PACKET PO PRN ×2 (00:49→04:19)
[2016-09-17] MEDS: Levothyroxine INJ* 100 MCG in D5W 250 ML BAG* 250 ML IV SCH ×6 (02:10→22:16)
[2016-09-17] MEDS: Albuterol 2.5 MG/3 ML NEB.SOL* (0.083%) INH SCH ×5 (04:28→20:34)
[2016-09-17] MEDS: Piperac/Tazob 3.375 gm in NS* 3.375 GM/100 ML BAG IVPB SCH ×2 (05:58→17:58)
[2016-09-17] MEDS: Desmopressin Acetate* 4 MCG/ML 1 ML SDV IV SCH ×2 (05:59→18:08)
[2016-09-17] MEDS ORDERED: ICU Lab Reminder 1 NOTE MISC FOLLOW UP SCH (07:00)
[2016-09-17] MEDS: NS 0.45% KCl 20 Meq 1000 ML* 1,000 ML IV SCH (09:12)
[2016-09-17] MEDS: KCL 20 MEQ/100 ML IVPREMIX* 100 ML BAG IV PRN (09:34)
[2016-09-17] MEDS: CALCIUM GLUCONATE* 1 GM/10 ML VIAL (in Pyxis) IV PRN (11:06)
[2016-09-17 16:06] VITALS: BP 135/67
[2016-09-17] MEDS: Magnesium Sulfate 1 GM IV* 100 ML BAG IV PRN (17:37)
[2016-09-17] MEDS ORDERED: NS 0.9% 1000 ML* 1,000 ML IV SCH (19:45)
[2016-09-17] MEDS ORDERED: NS 0.9% 1000 ML* 2,000 ML IV SCH (20:00)
[2016-09-17] MEDS: Miconazole VAG SUPP* 200 MG SUP VAGINAL SCH (21:55)
[2016-09-17] MEDS ORDERED: Sodium Phosphate INJ* 3 MMOLE/ML 5 ML IVPB PRN (23:00)
[2016-09-17] MEDS ORDERED: CALCIUM GLUCONATE* 1 GM/10 ML VIAL (in Pyxis) IV PRN (23:00)
[2016-09-17] MEDS ORDERED: Magnesium Sulfate IV* 0.5 GM/ML 2 ML VIAL (1 GM) IVPB PRN (23:00)
[2016-09-17] MEDS ORDERED: KCL 20 MEQ/100 ML IVPREMIX* 100 ML BAG IV PRN (23:00)
[2016-09-17] MEDS ORDERED: Potassium Chlor TAB* 20 MEQ TAB.ER PO PRN (23:00)
[2016-09-17] MEDS ORDERED: Potassium Phosphate IV* 3 MMOLE/ML 5 ML IVPB IV PRN (23:00)
[2016-09-18] MEDS: CHLORHEXADINE (PERIDEX) VENT ORAL CARE TOPICAL SCH ×5 (00:15→08:45)
[2016-09-18] MEDS: Albuterol 2.5 MG/3 ML NEB.SOL* (0.083%) INH SCH ×5 (00:39→14:56)
[2016-09-18] MEDS: INSULIN LISPRO SUBCUT SCH ×6 (00:40→10:21)
[2016-09-18] MEDS: Levothyroxine INJ* 100 MCG in D5W 250 ML BAG* 250 ML IV SCH ×3 (00:59→08:20)
[2016-09-18] MEDS: NS 0.9% 1000 ML* 2,000 ML IV SCH ×2 (02:15→04:21)
[2016-09-18] MEDS: NS 0.45% KCl 20 Meq 1000 ML* 1,000 ML IV SCH (04:02)
[2016-09-18] MEDS: Desmopressin Acetate* 4 MCG/ML 1 ML SDV IV SCH (06:12)
[2016-09-18] MEDS: Piperac/Tazob 3.375 gm in NS* 3.375 GM/100 ML BAG IVPB SCH (06:15)
[2016-09-18] MEDS ORDERED: HYDROmorphone INJ* 1 MG/ML CARPUJECT SYRINGE ONE ×4 (11:01→12:32)
[2016-09-18] MEDS ORDERED: Rocuronium* 10 MG/ML VIAL ONE (11:10)
[2016-09-18] MEDS ORDERED: Albumin Human 5%* 250 ML BTL IV ONE (11:21)
[2016-09-18] MEDS ORDERED: Albumin Human 5%* 500 ML in PREMIX* 0 ML IV ONE ×6 (13:00)
== END 2016-09-15 11:40 | disposition expired | DRG 816 ==
LOC: ED 23:16 → ICU 09-12 01:24
PROVIDERS: ADMIT Hospitalist; ATTEND Internal Medicine Critical Care Medicine
PROC: 0BH17EZ Insertion of Endotracheal Airway into Trachea, Via Natural or Artificial Opening (ICD-10-PCS; principal; 2016-09-12)
PROC: 5A1935Z Respiratory Ventilation, Less than 24 Consecutive Hours (ICD-10-PCS; 2016-09-12)
PROC: 05H633Z Insertion of Infusion Device into Left Subclavian Vein, Percutaneous Approach (ICD-10-PCS; 2016-09-12)
DX: T65.891A Toxic effect of other specified substances, accidental (unintentional), initial encounter (principal); G93.6 Cerebral edema; G93.5 Compression of brain; I46.9 Cardiac arrest, cause unspecified; I21.4 Non-ST elevation (NSTEMI) myocardial infarction; G93.1 Anoxic brain damage, not elsewhere classified; J69.0 Pneumonitis due to inhalation of food and vomit; J96.01 Acute respiratory failure with hypoxia; R40.20 Unspecified coma; N17.0 Acute kidney failure with tubular necrosis; R40.2112 Coma scale, eyes open, never, at arrival to emergency department; R40.2312 Coma scale, best motor response, none, at arrival to emergency department; R40.2212 Coma scale, best verbal response, none, at arrival to emergency department; E87.2 Acidosis; E87.3 Alkalosis; E87.1 Hypo-osmolality and hyponatremia; I47.2 Ventricular tachycardia; F99 Mental disorder, not otherwise specified; R57.0 Cardiogenic shock; K29.60 Other gastritis without bleeding; K75.89 Other specified inflammatory liver diseases; Y92.89 Other specified places as the place of occurrence of the external cause
CPT/HCPCS: 36415; 36600; 47000; 70450; 71010; 76942; 80048; 80053; 80076; 80307; 81003; 81015; 82150; 82248; 82272; 82330; 82550; 82553; 82803; 82977; 83036; 83605; 83690; 83735; 83930; 83935; 84100; 84300; 84436; 84484; 85025; 85027; 85610; 85730; 86850; 86900; 86901; 87040; 87070; 87086; 87205; 93005; 94002; 94003; 94640; 94667; 94668; 94760; 99282; 99406; A9270-GY; J0282; J0610; J1644; J2543; J2597; J2704; J2930; J3010; J3475; J3480; J7060